=== PATIENT | male | born 1965 | race Caucasian/White ===

== ENCOUNTER 2017-05-20 14:05 | Emergency (ER) | payer OTHER ==
[~2017-05-20] VITALS: Ht 182.9 cm; Wt 84.0 kg
[~2017-05-20 14:05] MED LIST: DARU800T PO; PRAV10 PO; RITO100 PO; TAMS0.4C67 PO; VENL-39 PO
[2017-05-20 14:40] VITALS: BP 126/65; PULSE 91; RESP 16; TEMP 98.6; O2SAT 96
[2017-05-20 16:16] LABS: AUTOMATED NEUTROPHIL # 3.2 TH/MM3 (1.8-7.7); BASOPHIL # 0.1 TH/MM3 (0-0.2); EOSINOPHIL # 0.2 TH/MM3 (0-0.4); EOSINOPHIL % 2.9 % (0.0-4.0); HEMATOCRIT 46.8 % (39.0-51.0); HEMOGLOBIN 16.2 GM/DL (13.0-17.0); LYMPH % 28.5 % (9.0-44.0); LYMPHOCYTE # 1.7 TH/MM3 (1.0-4.8); MEAN CELL VOLUME 99.3 FL (80.0-100.0); MEAN CORPUSCULAR HEMOGLOBIN 34.4 PG (27.0-34.0); MEAN CORPUSCULAR HGB CONC 34.7 % (32.0-36.0); MONO % 13.5 % (0.0-8.0); MONOCYTE # 0.8 TH/MM3 (0-0.9); NEUT % 54.1 % (16.0-70.0); PLATELET COUNT 240 TH/MM3 (150-450); RED BLOOD COUNT 4.72 MIL/MM3 (4.50-5.90); RED CELL DISTRIBUTION WIDTH 13.4 % (11.6-17.2)
[2017-05-20 16:55] LABS: ALBUMIN 3.7 GM/DL (3.4-5.0); ALKALINE PHOSPHATASE 85 U/L (45-117); ALT (GPT) 24 U/L (12-78); AST (GOT) 21 U/L (15-37); BICARBONATE 26.4 MEQ/L (21.0-32.0); BLOOD UREA NITROGEN 23 MG/DL (7-18); CALCIUM 8.8 MG/DL (8.5-10.1); CHLORIDE 104 MEQ/L (98-107); CREATININE 1.22 MG/DL (0.60-1.30); GLOMERULAR FILTRATION RATE 62 ML/MIN (>89); GLUCOSE,RANDOM 98 MG/DL (74-106); SODIUM (NA) 138 MEQ/L (136-145); TOTAL BILIRUBIN ADULT 0.2 MG/DL (0.2-1.0); TOTAL PROTEIN 7.7 GM/DL (6.4-8.2)
[2017-05-20 17:12] VITALS: BP 125/84; PULSE 85; RESP 18; O2SAT 96
--- NOTE | 2017-05-20 17:31 | PD ---
HPI Chief Complaint: GI Complaint Time Seen by Provider: 17:09 Travel History International Travel<30 days: No Contact w/Intl Traveler<30days: No Traveled to known affect area: No History of Present Illness HPI 52-year-old male with history of HIV, COPD, and BPH presents emergency department for evaluation of bright red bleeding per rectum since May 12. States that he saw his HIV physician, Dr. Reed at the health department May 11 and had labs which were normal according to patient. Patient says he has had 2-3 bright red bowel movements daily. Says he has had brown stool with some blood in the toilet. He denies foreign body insertion to cause this problem. He denies any inciting events to cause this bleeding. Says he has lower pelvic pain and believes this is secondary to him not taking his tamsulosin for couple days. Says he has been able to urinate but has had a slow stream. He denies fever, chills, chest pain, unusual shortness of breath, nausea, vomiting or diarrhea. Last colonoscopy was 5-6 months ago and was "normal". Says he does have a history of hemorrhoids. He uses inhalers for his COPD. No blood thinners, denies cardiac or kidney problems. PFSH Past Medical History Autoimmune Disease: Yes Depression: Yes High Cholesterol: Yes Diminished Hearing: No Herniated Disk: Yes Immune Disorder: Yes Inguinal Hernia: Yes Past Surgical History Joint Replacement: Yes Social History Alcohol Use: Yes Tobacco Use: Yes Substance Use: No Allergies-Medications (Allergen,Severity, Reaction): Coded Allergies: No Known Allergies (Unverified Adverse Reaction, Unknown, 05/20/17) Reported Meds & Prescriptions Reported Meds & Active Scripts Active Reported Venlafaxine Hcl Er 75 Mg Tab (Venlafaxine HCl) 75 Mg Meg 75 Mg PO DAILY 3 tabs in morning Pravastatin Sodium 10 Mg Tab 1 Tab PO DAILY Flomax (Tamsulosin HCl) 0.4 Mg Cap 0.4 Mg PO DAILY Norvir (Ritonavir) 100 Mg Cap 100 Mg PO DAILY Prezista (Darunavir Ethanolate) 800 Mg Tab 800 Mg PO DAILY Review of Systems Except as stated in HPI: all other systems reviewed are Neg Physical Exam Narrative GENERAL: Well-developed, well-nourished in no apparent distress SKIN: Focused skin assessment warm/dry. HEAD: Atraumatic. Normocephalic. EYES: Pupils equal and round. No scleral icterus. No injection or drainage. ENT: No nasal bleeding or discharge. Mucous membranes pink and moist. NECK: Trachea midline. No JVD. No lymphadenopathy CARDIOVASCULAR: Regular rate and rhythm. No murmur appreciated. RESPIRATORY: No accessory muscle use. Clear to auscultation. Breath sounds equal bilaterally. GASTROINTESTINAL: Abdomen soft, non-tender, nondistended. Mild tender to palpation in the mid pelvic region without rebound tenderness. No CVA tenderness MUSCULOSKELETAL: No obvious deformities. No clubbing. No cyanosis. No edema. NEUROLOGICAL: Awake and alert. No obvious cranial nerve deficits. Motor grossly within normal limits. Normal speech. PSYCHIATRIC: Appropriate mood and affect; insight and judgment normal. Data Data Last Documented VS Vital Signs Date Time Temp Pulse Resp B/P (MAP) Pulse Ox O2 Delivery O2 Flow Rate FiO2 05/20/17 19:42 05/20/17 17:12 85 18 96 Room Air 05/20/17 14:40 98.6 Orders Orders Complete Blood Count With Diff (05/20/17 14:44) Comprehensive Metabolic Panel (05/20/17 14:44) Prothrombin Time / Inr (Pt) (05/20/17 14:44) Act Partial Throm Time (Ptt) (05/20/17 14:44) Type And Screen (05/20/17 14:44) Urinalysis - C+S If Indicated (05/20/17 17:26) Ed Discharge Order (05/20/17 19:32) Labs Laboratory Tests Test 05/20/17 14:51 05/20/17 18:22 White Blood Count 6.0 TH/MM3 Red Blood Count 4.72 MIL/MM3 Hemoglobin 16.2 GM/DL Hematocrit 46.8 % Mean Corpuscular Volume 99.3 FL Mean Corpuscular Hemoglobin 34.4 PG Mean Corpuscular Hemoglobin Concent 34.7 % Red Cell Distribution Width 13.4 % Platelet Count 240 TH/MM3 Mean Platelet Volume 7.0 FL Neutrophils (%) (Auto) 54.1 % Lymphocytes (%) (Auto) 28.5 % Monocytes (%) (Auto) 13.5 % Eosinophils (%) (Auto) 2.9 % Basophils (%) (Auto) 1.0 % Neutrophils # (Auto) 3.2 TH/MM3 Lymphocytes # (Auto) 1.7 TH/MM3 Monocytes # (Auto) 0.8 TH/MM3 Eosinophils # (Auto) 0.2 TH/MM3 Basophils # (Auto) 0.1 TH/MM3 CBC Comment DIFF FINAL Differential Comment Prothrombin Time 10.0 SEC Prothromb Time International Ratio 1.0 RATIO Activated Partial Thromboplast Time 27.0 SEC Blood Urea Nitrogen 23 MG/DL Creatinine 1.22 MG/DL Random Glucose 98 MG/DL Total Protein 7.7 GM/DL Albumin 3.7 GM/DL Calcium Level 8.8 MG/DL Alkaline Phosphatase 85 U/L Aspartate Amino Transf (AST/SGOT) 21 U/L Alanine Aminotransferase (ALT/SGPT) 24 U/L Total Bilirubin 0.2 MG/DL Sodium Level 138 MEQ/L Potassium Level 4.2 MEQ/L Chloride Level 104 MEQ/L Carbon Dioxide Level 26.4 MEQ/L Anion Gap 8 MEQ/L Estimat Glomerular Filtration Rate 62 ML/MIN Urine Color YELLOW Urine Turbidity CLEAR Urine pH 5.5 Urine Specific [place] 1.018 Urine Protein NEG mg/dL Urine Glucose (UA) NEG mg/dL Urine Ketones NEG mg/dL Urine Occult Blood SMALL Urine Nitrite NEG Urine Bilirubin NEG Urine Urobilinogen LESS THAN 2.0 MG/DL Urine Leukocyte Esterase NEG Urine RBC 5 /hpf Urine WBC LESS THAN 1 /hpf Microscopic Urinalysis Comment CULT NOT INDICATED MDM Medical Decision Making Medical Screen Exam Complete: Yes Emergency Medical Condition: Yes Differential Diagnosis Bleeding hemorrhoids, hemorrhoids, anal laceration, anal fissure Narrative Course 52-year-old male with a history of COPD, HIV since emerged from for evaluation of rectal bleeding that has occurred daily since May 12. Vital signs are stable. CBC & BMP Diagram 05/20/17 14:51 Total Protein 7.7, Albumin 3.7, Calcium Level 8.8, Alkaline Phosphatase 85, Aspartate Amino Transf (AST/SGOT) 21, Alanine Aminotransferase (ALT/SGPT) 24, Total Bilirubin 0.2 Urinalysis negative. Rectal exam performed in the presence of a male nurse demonstrates good tone, scant brown stool, Hemoccult positive. Patient denies any symptoms related to his rectal bleeding. Advised take all his medications as prescribed. Return to the emergency department for worsening or persistent symptoms. HemaPrompt Point of Care Internal Pos. & Neg. Controls: Passed Fecal Specimen Occult Blood: Positive (scant brown stool) Diagnosis Primary Impression: Rectal bleeding Referrals: Colon Rectal Specialist Additional Instructions: Follow-up with primary care physician within 2-3 days. Follow-up with your colorectal specialist for further evaluation of the rectal bleeding. Avoid straining with her bowel movements. I recommend an [id number] stool softener to reduce the possibility of further bleeding. If your symptoms persist or worsen return to the emergency department. Please give patient all lab reports from today. Disposition: 01 DISCHARGE HOME Condition: Stable Rosa Maria Walton May 20, 2017 17:31
[2017-05-20 19:06] LABS: BILIRUBIN, URINE NEG (NEG); BLOOD, URINE SMALL (NEG); GLUCOSE,URINE NEG (NEG); KETONE, URINE NEG (NEG); NITRITE,URINE NEG (NEG); PH, URINE 5.5 (5.0-8.5); URINE COLOR YELLOW (YELLW/STRAW); URINE LEUKOCYTE ESTERASE NEG (NEG)
== END 2017-05-20 19:43 | disposition home or self-care (01) ==
LOC: NEPC 14:05
DX: K62.5 Hemorrhage of anus and rectum (principal); E78.00 Pure hypercholesterolemia, unspecified; J44.9 Chronic obstructive pulmonary disease, unspecified; N40.0 Benign prostatic hyperplasia without lower urinary tract symptoms; F32.9 Major depressive disorder, single episode, unspecified; Z21 Asymptomatic human immunodeficiency virus [HIV] infection status; Z72.0 Tobacco use; Z79.899 Other long term (current) drug therapy
CPT/HCPCS: 80053; 81001; 85025; 85610; 85730; 86850; 86900; 86901; 99284